=== PATIENT | female | born 1950 | race Caucasian/White ===

== ENCOUNTER 2017-04-29 12:07 | Inpatient (IN) ==
[2017-04-28 15:48] LABS: Basophils # (Auto) 0 K/mcL (0.0-0.3); Basophils % (Auto) 0.5 % (0.0-2.0); Eosinophils # (Auto) 0.3 K/mcL (0.0-0.7); Eosinophils % (Auto) 3.8 % (0.0-7.0); Granulocytes % (Auto) 62.1 % (38.0-78.0); Lymphocytes # (Auto) 1.8 K/mcL (1.5-4.8); Lymphocytes % (Auto) 25.6 % (15.5-49.0); Mean Cell Volume 90.4 fL (80.0-100.0); Mean Corpuscular HGB Conc 33.8 g/dL (31.0-36.0); Mean Corpuscular Hemoglobin 30.6 pg (26.0-34.0); Monocytes # (Auto) 0.6 K/mcL (0.1-0.9); Platelet Count 243 K/mcL (140-440); RBC 4.76 M/mcL (4.00-5.20); Red Cell Distribution Width 12.7 % (11.5-14.5)
[2017-04-28 16:02] LABS: Blood Urea Nitrogen 21 mg/dl (8-23)
[2017-04-28 16:12] LABS: Appearance,Urine CLEAR; Bilirubin,Urine NEG (NEG); Color,Urine YELLOW; Glucose,Urine (UA) NEGATIVE (NEG); Leukocyte Esterase,Urine NEG /uL (NEG); Nitrate,Urine NEG (NEG); Protein,Urine NEG (NEG); Specific Gravity,Urine 1.016 (1.000-1.035); Urine Blood NEG mg/dL (<0.03); Urobilinogen,Urine NEG (NEG)
[~2017-04-29 12:07] MED LIST: CELECOXIB 200 MG CAPSULE PO SCH; PREGABALIN 75 MG CAPSULE PO SCH; ceFAZolin 1 GM VIAL IV SCH; oxyCODONE 10 MG TAB.ER.12H PO SCH
[2017-04-29] MEDS ORDERED: METOPROLOL SUCCINATE 25 MG TAB.XL.24H PO STA (13:21)
[2017-04-29] MEDS ORDERED: SCOPOLAMINE 1 PATCH PATCH TOPICAL SCH (13:30)
[2017-04-29] MEDS ORDERED: KETOROLAC 30 MG, ROPIVACAINE HCL/PF 49.5 ML, EPINEPHrine 0.5 MG, 0.9 % SODIUM CHLORIDE ... IJ ONE (14:00)
[2017-04-29] MEDS ORDERED: LIDOCAINE HCL/PF 100 MG/5 ML SYRINGE IV ONE (16:20)
[2017-04-29] MEDS ORDERED: DEXAMETHASONE 10 MG/ML VIAL IV ONE (16:20)
[2017-04-29] MEDS ORDERED: PROPOFOL 200 MG/20 ML VIAL IV ONE (16:20)
[2017-04-29] MEDS ORDERED: ePHEDrine 50 MG/ML AMPUL IV ONE (16:20)
[2017-04-29] MEDS ORDERED: TRANEXAMIC ACID 1,000 MG/10 ML VIAL IV ONE (16:20)
[2017-04-29] MEDS ORDERED: ROPIVACAINE HCL/PF 20 ML VIAL IJ ONE (16:20)
[2017-04-29] MEDS ORDERED: ONDANSETRON 4 MG/2 ML VIAL IV ONE (16:20)
[2017-04-29] MEDS ORDERED: GENTAMICIN SULFATE 800 MG/20 ML VIAL IR ONE (16:53)
[2017-04-29] MEDS ORDERED: PROMETHAZINE 25 MG/ML VIAL IM PRN (17:20)
[2017-04-29] MEDS ORDERED: diphenhydrAMINE 50 MG/ML VIAL IV PRN (17:20)
[2017-04-29] MEDS ORDERED: LACTATED RINGERS 250 ML IV PRN (17:20)
[2017-04-29] MEDS ORDERED: PROMETHAZINE 25 MG/ML VIAL IV PRN (17:20)
[2017-04-29] MEDS ORDERED: BENZOCAINE/MENTHOL 1 LOZENGE PO PRN ×2 (17:20→17:55)
[2017-04-29] MEDS ORDERED: METHOCARBAMOL 1,000 MG/10 ML VIAL IV PRN (17:20)
[2017-04-29] MEDS ORDERED: HYDROmorphone 2 MG/ML SYRINGE IV PRN ×2 (17:20→17:55)
[2017-04-29] MEDS ORDERED: MEPERIDINE 25 MG/ML SYRINGE IV PRN (17:20)
[2017-04-29] MEDS ORDERED: MEPERIDINE 50 MG/ML SYRINGE IM PRN (17:20)
[2017-04-29] MEDS ORDERED: fentaNYL 100 MCG/2 ML VIAL IV PRN (17:20)
[2017-04-29] MEDS ORDERED: NALOXONE HCL 0.4 MG/ML VIAL IV PRN (17:20)
[2017-04-29] MEDS ORDERED: FLUMAZENIL 0.1 MG/ML ML IV PRN (17:20)
[2017-04-29] MEDS ORDERED: ePHEDrine 50 MG/ML AMPUL IV PRN (17:20)
[2017-04-29] MEDS ORDERED: IPRATROPIUM/ALBUTEROL 3 ML AMPUL.NEB NEB PRN (17:20)
[2017-04-29] MEDS ORDERED: ONDANSETRON 4 MG/2 ML VIAL IV PRN ×2 (17:20→17:55)
[2017-04-29] MEDS ORDERED: LACTATED RINGERS 1,000 ML IV SCH (17:30)
[2017-04-29] MEDS ORDERED: BISACODYL 10 MG SUPP.RECT PR PRN (17:55)
[2017-04-29] MEDS ORDERED: MAGNESIUM HYDROXIDE 30 ML ORAL.SUSP PO PRN (17:55)
[2017-04-29] MEDS ORDERED: TRANEXAMIC ACID 1,000 MG/10 ML VIAL IV SCH (17:55)
[2017-04-29] MEDS ORDERED: POLYETHYLENE GLYCOL 3350 17 GM PACKET PO PRN (17:55)
[2017-04-29] MEDS ORDERED: FLEETS ADULT ENEMA PR PRN (17:55)
[2017-04-29] MEDS ORDERED: HYDROcodone/APAP 10/325MG TABLET PO PRN (17:55)
--- NOTE | 2017-04-29 17:55 | Brief Operative Note ---
Date of procedure: 04/29/17 Pre-op diagnosis: left knee djd severe Post-op diagnosis: same Procedure: left tka with susana robot Grafts/Implants: Yes Anesthesia: GETA Complications: none Complications Description: 04/29/17 17:54 none Surgeon: Harsha Davila Beef Pluck Trimmer: Sly Pugh Estimated blood loss (cc): 50 Tourniquet Time (Minutes): 60 Specimens Removed/Pathology: none sent Condition: stable Disposition: PACU
--- NOTE | 2017-04-29 18:28 | XRay Report ---
CLINICAL INFORMATION: Reason for Exam:Post-Op Total Knee COMPARISON: None. FINDINGS: Total knee prostheses is anatomically aligned. No osseous abnormality. Soft tissues swelling seen as expected IMPRESSION: Negative Interpreted and Authenticated by: Tyson Medina 04/29/17
[2017-04-29] MEDS: 0.45 % SODIUM CHLORIDE 1,000 ML IV SCH (19:31)
[2017-04-29] MEDS: KETOROLAC 15 MG/ML VIAL IV SCH ×2 (19:31→23:55)
[2017-04-29] MEDS ORDERED: amLODIPine 5 MG TABLET PO SCH (21:00)
[2017-04-29] MEDS ORDERED: NAPROXEN (PP) 200MG TABLET (#24) PO SCH (21:00)
[2017-04-29] MEDS ORDERED: DOCUSATE SODIUM 100 MG CAPSULE PO SCH (21:00)
[2017-04-29] MEDS ORDERED: SENNOSIDES 1 TABLET PO SCH (21:00)
[2017-04-29] MEDS ORDERED: TEMAZEPAM 15 MG CAPSULE PO PRN (21:00)
[2017-04-29] MEDS ORDERED: ATORVASTATIN 20 MG TABLET PO SCH (21:00)
[2017-04-29] MEDS: ASPIRIN 325 MG ENTERIC COATED TABLET PO SCH (21:14)
[2017-04-29] MEDS: 0.9 % SODIUM CHLORIDE 10 ML SYRINGE IV SCH (21:15)
[2017-04-29] MEDS: ACETAMINOPHEN 325 MG TABLET PO PRN (21:23)
[2017-04-29] MEDS: ceFAZolin 1 GM VIAL IV SCH (23:56)
[2017-04-30] MEDS: ACETAMINOPHEN 325 MG TABLET PO PRN (03:15)
[2017-04-30] MEDS: 0.45 % SODIUM CHLORIDE 1,000 ML IV SCH ×2 (05:30→14:34)
[2017-04-30] MEDS: 0.9 % SODIUM CHLORIDE 10 ML SYRINGE IV SCH ×2 (05:30→14:34)
[2017-04-30] MEDS: KETOROLAC 15 MG/ML VIAL IV SCH ×3 (05:31→17:59)
--- NOTE | 2017-04-30 07:44 | Orthopedic Progress Note ---
Subjective Patient information: Note initiated : 04/30/17 at 7:43 am Service Date, if different from initiated Date: [] Patient: Susan Zuluaga 67 y/o F admitted on 04/29/17 for Left Total Knee Arthroplasty with Evan Assist. Chief Complaint: minimal pain and walking well] Objective Vital signs: Vital Signs Temp Pulse Resp BP Pulse Ox 04/30/17 07:31 93 04/30/17 06:56 97.8 F 22 112/72 93 04/30/17 03:28 92 04/30/17 03:20 98.0 F 81 14 105/65 92 04/30/17 01:03 96 04/29/17 23:08 96 04/29/17 23:07 97.8 F 92 H 16 142/80 96 04/29/17 21:55 97 04/29/17 20:00 93 H 148/77 97 04/29/17 19:30 91 H 137/80 93 04/29/17 19:14 97 04/29/17 19:00 94 H 147/79 99 04/29/17 18:45 95.6 F L 95 H 14 152/79 99 04/29/17 18:30 97.1 F 89 16 136/69 98 04/29/17 18:15 97.7 F 91 H 16 127/58 99 04/29/17 18:10 97.7 F 88 18 115/57 100 04/29/17 18:05 97.7 F 64 14 114/56 100 04/29/17 18:00 97.7 F 54 L 14 119/54 98 04/29/17 12:30 96.9 F L 78 18 144/82 95 04/29/17 12:20 18 95 Intake and Output 04/29/17 04/30/17 04/30/17 21:59 05:59 13:59 Intake Total 20998 / 1898 Output Total 1852 551 / 551 Balance 2098 45 / 45 -551 / -551 Intake: IV 998 / 998 Sodium Chloride 0.45% 1, 998 / 998 000 ml @ 100 mls/hr IV . Q10H JAMILAH Rx#:[id number] Oral 900 / 900 IV - Manual Only 2099 Output: Void Amount 1849 550 / 550 # of times incontinent of 1 / 1 3 / 3 1 / 1 urine Other: Weight 254 lb 6.4 oz Intake & Output: Intake & Output 04/29/17 04/30/17 04/30/17 21:59 05:59 13:59 Intake Total 2099 1898 / 1898 Output Total 1852 / 1852 551 / 551 Balance 2098 / 2098 45 / 45 -551 / -551 Weight 254 lb 6.4 oz Intake: IV 998 / 998 Sodium Chloride 0.45% 1, 998 / 998 000 ml @ 100 mls/hr IV . Q10H JAMILAH Rx#:[id number] Oral 900 / 900 IV - Manual Only 2099 Output: Void Amount 1849 550 / 550 # of times incontinent of urine Incision: Yes healing Incision clean and dry: Yes Dressing: Yes clean Weight bearing status: full Neurological exam IM: Yes oriented X3, Yes neurovascular intact Extremities exam IM: Yes Foot pink and warm, Yes neurovascular intact (d/c home later today) - Labs CBC & BMP: 04/30/17 04:35 04/28/17 14:27 Labs: Orthopedic Labs 04/28/17 14:27 PT 13.7 INR 1.0 APTT 04/30/17 04/28/17 04:35 14:27 Hgb 14.6 Hct 39.3 43.1
--- NOTE | 2017-04-30 07:47 | Discharge Summary ---
Ortho Discharge - TKA - Patient Instructions Diet: Regular Diet Activity: activity as tolerated, weight bearing as tolerated Total Knee Protocol: For Total Knee: Start ROM HERNAN with stationary bike or rocking chair. Work on gaining full extension of knee. Posterior dislocation precautions provided. Hip abductor strengthening and gait training instructions provided. Apply Cryocuff as instructed. Dressing Care: Aquacel Ag - leave on for 5 days - Follow Up Plan Disposition: Home, Self-Care Prognosis: Good Rehab Potential: Good I certify that the patient requires SNF services: No Overall status at discharge: patient is progressing back to baseline - Orders For Discharge Additional Discharge Orders: Physical Therapy at Discharge - TKA Location: Determined By Patient CPM Discharge Order Location: Determined By Patient Toilet Riser Discharge Order Location: Determined By Patient Walker Location: Determined By Patient
[2017-04-30] MEDS ORDERED: oxyCODONE/APAP 5/325MG TABLET PO PRN (07:53)
[2017-04-30] MEDS: ceFAZolin 1 GM VIAL IV SCH (08:50)
[2017-04-30] MEDS: ASPIRIN 325 MG ENTERIC COATED TABLET PO SCH (08:50)
[2017-04-30] MEDS ORDERED: VITAMIN D3 1,000 UNIT TABLET PO SCH (09:00)
[2017-04-30] MEDS ORDERED: HYDROCHLOROTHIAZIDE 25 MG TABLET PO SCH (09:00)
[2017-04-30] MEDS ORDERED: LOSARTAN 50 MG TABLET PO SCH (09:00)
[2017-04-30] MEDS ORDERED: FISH OIL 1,000 MG CAPSULE PO SCH (09:00)
[2017-04-30] MEDS ORDERED: METOPROLOL SUCCINATE 25 MG TAB.XL.24H PO SCH (09:00)
[2017-04-30] MEDS ORDERED: oxyCODONE 10 MG TAB.ER.12H PO SCH (09:00)
--- NOTE | 2017-06-15 08:17 | Operative Note ---
DATE OF OPERATION: 04/29/2017 PREOPERATIVE DIAGNOSIS: Severe left knee degenerative arthritis through all compartments. POSTOPERATIVE DIAGNOSIS: Severe left knee degenerative arthritis through all compartments. PROCEDURE: Left total knee arthroplasty with the JULIOCESAR robot. SURGEON: Harsha Davila MD. ARMATURE REWINDER: Sly Pugh PA-C. ANESTHESIA: General LMA anesthesia. ESTIMATED BLOOD LOSS: 50 mL. TOURNIQUET TIME: 60 minutes. IMPLANTS: [place] components with the JULIOCESAR robot. DESCRIPTION OF PROCEDURE: The patient was brought to the operating room and put to sleep with general LMA anesthesia. Once asleep, the patient had the left leg sterilely prepped and draped in the usual sterile fashion and confirmed as the operative site. Once this was done, Ioban was placed over the skin, preop antibiotics and tranexamic acid was confirmed as given. A time out confirmed the operative site as the left leg. Once all this had been done, we made a midline incision, inflated the tourniquet up to 250 pounds of pressure. A mid vastus approach was performed. Once this was done, we registered the hip center of rotation. Two pins above and below the knee were registered, 30 points on the femur, 30 points on the tibia, and we balanced the knee. Osteophytes were removed. Remnants of the meniscus and ACL were removed. Once this was done, we then brought the robot in and registered the femur and the robotic arm. We made our distal femoral cut and posterior chamfer cut. We then made our anterior and posterior cuts after changing the saw blade and the tibial cut. Once this was done, I then tapped into place a size 4 tibial baseplate, size 4 femur and trialed the components. It seemed that they balanced very well with a standard thickness poly. We then prepared the patella measuring 22 mm. This was cut to 13 mm and then placing a 33 mm patellar button. Once this was done, the components were cemented into place a size 4 femur, a size 4 tibial baseplate with a 9 mm poly and 33 mm cup patellar button. There were no complications. We irrigated thoroughly. Excess cement had been removed. We closed the mid vastus approach with Stratafix #1. We closed the skin with 2-0 Vicryl and adhesive closure. The patient tolerated this well without complication. ALISA:marissa Job ID: [id number] Doc ID: [id number] Harsha Davila MD
== END 2017-04-30 19:05 | disposition home or self-care (01) | DRG 470 ==
LOC: MEDSUR 12:07
PROVIDERS: ADMIT Orthopaedic Surgery; ATTEND Orthopaedic Surgery

== ENCOUNTER 2019-04-25 04:59 | Inpatient (IN) ==
[2019-04-19 18:57] LABS: Basophils # (Auto) 0 K/mcL (0.0-0.3); Basophils % (Auto) 0.6 % (0.0-2.0); Eosinophils # (Auto) 0.2 K/mcL (0.0-0.7); Eosinophils % (Auto) 3.4 % (0.0-7.0); Granulocytes % (Auto) 62.8 % (38.0-78.0); Hematocrit 43.9 % (36.0-48.0); Hemoglobin 14.2 g/dL (12.0-15.0); Lymphocytes # (Auto) 1.5 K/mcL (1.5-4.8); Lymphocytes % (Auto) 24.8 % (15.5-49.0); Mean Cell Volume 89.7 fL (80.0-100.0); Mean Corpuscular HGB Conc 32.4 g/dL (31.0-36.0); Mean Platelet Volume 9.8 fL (7.4-10.4); Monocytes # (Auto) 0.5 K/mcL (0.1-0.9); Monocytes % (Auto) 8.4 % (1.0-12.0); Platelet Count 216 K/mcL (140-440); RBC 4.89 M/mcL (4.00-5.20)
[2019-04-19 19:33] LABS: Blood Urea Nitrogen 18 mg/dl (8-23); Carbon Dioxide 25 mmol/L (22-30); Chloride 105 mmol/L (96-108); Glomerular Filtration Rate 42; Glucose 113 mg/dL (70-105); Sodium 143 mmol/L (133-145)
[2019-04-19 19:47] LABS: INR 1.1 (0.9-1.1); Prothrombin Time 13.8 sec (11.9-14.5)
[2019-04-20 17:48] LABS: Appearance,Urine HAZY; Bacteria,Urine MOD /hpf (0); Bilirubin,Urine NEG (NEG); Color,Urine YELLOW; Culture Indicated,Urine NO; Glucose,Urine (UA) NEGATIVE (NEG); Ketones,Urine NEG (NEG); Leukocyte Esterase,Urine 25 /uL (NEG); Mucus,Urine MANY /hpf (0); Nitrate,Urine NEG (NEG); Protein,Urine 30 mg/dL (NEG); Specific Gravity,Urine 1.029 (1.000-1.035); Urine Amorphous Crystals FEW /hpf (0); Urine Blood NEG mg/dL (<0.03); Urine RBC 3 /hpf (0-1); Urine Squamous Epithelial Cell 13 /hpf (0-4); Urine Transitional Epi Cells < 1 /hpf (0-2); Urine WBC 25 /hpf (0-4); Urobilinogen,Urine NEG (NEG)
[2019-04-25] MEDS ORDERED: IPRATROPIUM/ALBUTEROL 3 ML AMPUL.NEB NEB PRN ×2 (05:00→09:06)
[2019-04-25] MEDS ORDERED: CELECOXIB 200 MG CAPSULE PO SCH (06:00)
[2019-04-25] MEDS ORDERED: ceFAZolin 3 GM in DEXTROSE 5% IN WATER 50 ML IV SCH (06:00)
[2019-04-25] MEDS ORDERED: ACETAMINOPHEN 500 MG TABLET PO SCH (06:00)
[2019-04-25] MEDS ORDERED: SCOPOLAMINE 1 PATCH PATCH TOPICAL ONE (06:00)
[2019-04-25] MEDS ORDERED: 0.9 % SODIUM CHLORIDE 9 ML, KETOROLAC 30 MG, ROPIVACAINE HCL/PF 49.5 ML, EPINEPHrine 0.... IJ SCH (06:00)
[2019-04-25] MEDS ORDERED: PREGABALIN 75 MG CAPSULE PO SCH (06:00)
[2019-04-25] MEDS ORDERED: oxyCODONE 10 MG TAB.ER.12H PO SCH (06:00)
[2019-04-25 06:54] LABS: Appearance,Urine CLEAR; Bacteria,Urine 0 /hpf (0); Bilirubin,Urine NEG (NEG); Color,Urine STRAW; Culture Indicated,Urine NO; Glucose,Urine (UA) NEGATIVE (NEG); Ketones,Urine NEG (NEG); Leukocyte Esterase,Urine NEG /uL (NEG); Mucus,Urine FEW /hpf (0); Nitrate,Urine NEG (NEG); Protein,Urine NEG (NEG); Specific Gravity,Urine 1.015 (1.000-1.035); Urine Blood 0.03 mg/dL (<0.03); Urine RBC 1 /hpf (0-1); Urine Squamous Epithelial Cell 1 /hpf (0-4); Urine WBC 2 /hpf (0-4); Urobilinogen,Urine NEG (NEG)
[2019-04-25] MEDS ORDERED: GENTAMICIN SULFATE 800 MG/20 ML VIAL IR ONE (07:19)
[2019-04-25] MEDS ORDERED: KETAMINE 100 MG/ML ML IV ONE (07:45)
[2019-04-25] MEDS ORDERED: ROPIVACAINE HCL/PF 20 ML VIAL IJ ONE (07:45)
[2019-04-25] MEDS ORDERED: PROPOFOL 200 MG/20 ML VIAL IV ONE (07:45)
[2019-04-25] MEDS ORDERED: TRANEXAMIC ACID 1,000 MG/10 ML VIAL IV ONE (07:45)
[2019-04-25] MEDS ORDERED: MIDAZOLAM 2 MG/2 ML VIAL IV ONE (07:45)
[2019-04-25] MEDS ORDERED: ONDANSETRON 4 MG/2 ML VIAL IV ONE (07:45)
[2019-04-25] MEDS ORDERED: ePHEDrine 50 MG/ML AMPUL IV ONE (07:45)
[2019-04-25] MEDS ORDERED: DEXAMETHASONE 10 MG/ML VIAL IV ONE (07:45)
[2019-04-25] MEDS ORDERED: LIDOCAINE HCL/PF 100 MG/5 ML SYRINGE IV ONE (07:45)
[2019-04-25] MEDS ORDERED: NALOXONE HCL 0.4 MG/ML VIAL IV PRN (09:06)
[2019-04-25] MEDS ORDERED: FLUMAZENIL 0.1 MG/ML ML IV PRN (09:06)
[2019-04-25] MEDS ORDERED: ONDANSETRON 4 MG/2 ML VIAL IV PRN ×2 (09:06→09:26)
[2019-04-25] MEDS ORDERED: PROMETHAZINE 25 MG/ML VIAL IV PRN (09:06)
[2019-04-25] MEDS ORDERED: diphenhydrAMINE 50 MG/ML VIAL IV PRN (09:06)
[2019-04-25] MEDS ORDERED: LACTATED RINGERS 250 ML IV PRN (09:06)
[2019-04-25] MEDS ORDERED: BENZOCAINE/MENTHOL 1 LOZENGE PO PRN ×2 (09:06→09:26)
[2019-04-25] MEDS ORDERED: MEPERIDINE 25 MG/ML SYRINGE IV PRN (09:06)
[2019-04-25] MEDS ORDERED: fentaNYL 100 MCG/2 ML VIAL IV PRN (09:06)
[2019-04-25] MEDS ORDERED: LACTATED RINGERS 1,000 ML IV SCH (09:15)
--- NOTE | 2019-04-25 09:23 | Brief Operative Note ---
Date of procedure: 04/25/19 Pre-op diagnosis: right knee djd severe contracture Post-op diagnosis: same Procedure: Right tka with susana robot Grafts/Implants: Yes Anesthesia: ROBERTA Surgeon: Harsha Davila Cash Crop Farmer: Sly Pugh Estimated blood loss (cc): 30 Tourniquet Time (Minutes): 50 Specimens Removed/Pathology: none sent Condition: stable Disposition: PACU
[2019-04-25] MEDS ORDERED: BISACODYL 10 MG SUPP.RECT PR PRN (09:26)
[2019-04-25] MEDS ORDERED: TRANEXAMIC ACID 1,000 MG/10 ML VIAL IV SCH (09:26)
[2019-04-25] MEDS ORDERED: POLYETHYLENE GLYCOL 3350 17 GM PACKET PO PRN (09:26)
[2019-04-25] MEDS ORDERED: ACETAMINOPHEN 325 MG TABLET PO PRN (09:26)
[2019-04-25] MEDS ORDERED: HYDROmorphone 2 MG/ML VIAL IV PRN (09:26)
[2019-04-25] MEDS ORDERED: MAGNESIUM HYDROXIDE 30 ML ORAL.SUSP PO PRN (09:26)
[2019-04-25] MEDS ORDERED: FLEETS ADULT ENEMA PR PRN (09:26)
[2019-04-25] MEDS ORDERED: ACETAMINOPHEN 500 MG TABLET PO PRN (09:32)
--- NOTE | 2019-04-25 10:09 | XRay Report ---
CLINICAL INFORMATION: Postsurgical follow-up TECHNIQUE: AP and crosstable lateral right knee COMPARISON: None. FINDINGS: Status post right total knee arthroplasty. Femoral and tibial components are in thymic positions. There is postsurgical soft tissue and intra-articular gas. There are skin destiny anteriorly IMPRESSION: Status post right total knee arthroplasty. Interpreted and Authenticated by: Tyson Brandt 04/25/19
[2019-04-25] MEDS: 0.45 % SODIUM CHLORIDE 1,000 ML IV SCH ×2 (10:19→20:42)
[2019-04-25] MEDS: oxyCODONE/APAP 5/325MG TABLET PO PRN ×2 (12:27→20:36)
[2019-04-25] MEDS: 0.9 % SODIUM CHLORIDE 10 ML SYRINGE IV SCH ×2 (12:28→20:38)
[2019-04-25] MEDS: KETOROLAC 15 MG/ML VIAL IV SCH ×3 (12:28→23:33)
[2019-04-25] MEDS: ceFAZolin 1 GM VIAL IV SCH ×2 (15:50→23:33)
[2019-04-25] MEDS ORDERED: ATORVASTATIN 20 MG TABLET PO SCH (21:00)
[2019-04-25] MEDS ORDERED: SENNOSIDES 1 TABLET PO SCH (21:00)
[2019-04-25] MEDS ORDERED: amLODIPine 10 MG TABLET PO SCH (21:00)
[2019-04-25] MEDS ORDERED: TEMAZEPAM 15 MG CAPSULE PO PRN (21:00)
[2019-04-25] MEDS: DOCUSATE SODIUM 100 MG CAPSULE PO SCH (21:09)
[2019-04-25] MEDS: ASPIRIN 325 MG ENTERIC COATED TABLET PO SCH (21:09)
[2019-04-26] MEDS: KETOROLAC 15 MG/ML VIAL IV SCH ×2 (05:44→11:52)
[2019-04-26] MEDS: 0.45 % SODIUM CHLORIDE 1,000 ML IV SCH ×2 (05:45→13:43)
[2019-04-26] MEDS: 0.9 % SODIUM CHLORIDE 10 ML SYRINGE IV SCH ×2 (05:46→12:41)
--- NOTE | 2019-04-26 07:34 | Orthopedic Progress Note ---
Subjective Patient information: Note initiated : 04/26/19 at 7:33 am Service Date, if different from initiated Date: [] Patient: Susan Zuluaga 69 y/o F admitted on 04/25/19 for Right Robotic Total Knee Arthroplasty. Chief Complaint: [Pt is stable this morning on post operative day 1 without any significant concerns or complaints. Patients vital signs have remained stable. Patients dressing is dry and is grossly intact from a neurovascular and motor standpoint. Patients 10 point ROS is otherwise negative. ] Objective Vital signs: Vital Signs Temp Pulse Resp BP BP Pulse Ox 04/26/19 07:19 98.4 F 78 12 141/70 96 04/26/19 05:43 96 04/26/19 04:30 98.5 F 75 12 129/68 94 04/26/19 02:00 95 04/25/19 23:40 98.7 F 86 12 118/68 94 04/25/19 22:00 94 04/25/19 19:10 98.2 F 87 12 125/64 94 04/25/19 17:56 91 04/25/19 16:00 98.0 F 96 H 18 120/65 94 04/25/19 13:40 97.4 F 76 18 148/70 94 04/25/19 13:10 97.6 F 82 18 130/67 93 04/25/19 12:10 74 18 139/71 93 04/25/19 11:45 103 H 16 134/76 95 04/25/19 11:10 79 16 121/69 94 04/25/19 10:55 71 16 128/65 94 04/25/19 10:40 77 16 119/64 94 04/25/19 10:25 74 16 122/65 94 04/25/19 10:22 91 04/25/19 10:10 97.2 F 77 12 129/68 97 04/25/19 10:06 97.4 F 75 18 140/57 93 04/25/19 09:57 97.4 F 79 20 139/60 93 04/25/19 09:42 97.3 F 80 22 142/60 98 04/25/19 09:37 78 21 145/61 97 04/25/19 09:32 79 20 143/67 97 04/25/19 09:27 97.3 F 76 18 148/67 96 Intake and Output 0604/26/19 04/26/19 21:59 05:59 13:59 Intake Total 800 200 Output Total 450 1050 Balance 350 -850 Intake: Oral 800 200 Output: Void Amount 450 1050 Other: Urine Appearance Clear Clear Urine Color Pale Pale Urine Odor Normal Normal # Voids 1 Weight 268 lb Intake & Output: Intake & Output 04/25/19 04/26/19 04/26/19 21:59 05:59 13:59 Intake Total 800 200 Output Total 450 1050 Balance 350 -850 Weight 268 lb Intake: Oral 800 200 Output: Void Amount 450 1050 Other: Urine Appearance Clear Clear Urine Color Pale Pale Urine Odor Normal Normal # Voids 1 Incision: Yes healing Incision clean and dry: Yes Dressing: Yes clean Weight bearing status: full Neurological exam IM: Yes motor sensory intact, Yes neurovascular intact Extremities exam IM: Yes Foot pink and warm, Yes neurovascular intact - Labs CBC & BMP: 04/26/19 04:45 04/19/19 15:32 Labs: Orthopedic Labs 04/19/19 15:32 PT 13.8 INR 1.1 APTT 32 04/26/19 04/19/19 04:45 15:32 Hgb 14.2 Hct 38.1 43.9 Assessment and Plan (1) Hx of total knee arthroplasty The patient has been educated regarding dressing care, Physical Therapy recommendations, home exercises, restrictions, and follow up appointments. The patient has had all necessary DME prescribed. The patient has remained relatively stable during their hospital course. Status: Acute
--- NOTE | 2019-04-26 07:37 | Discharge Summary ---
Ortho Discharge - TKA - Patient Instructions Diet: Regular Diet Activity: activity as tolerated, weight bearing as tolerated Total Knee Protocol: For Total Knee: Start ROM HERNAN with stationary bike or rocking chair. Work on gaining full extension of knee. Posterior dislocation precautions provided. Hip abductor strengthening and gait training instructions provided. Apply Cryocuff as instructed. Dressing Care: May shower in 2 days, Aquacel Ag - leave on for 5 days - Problem Maintenance (1) Hx of total knee arthroplasty Status: Acute - Follow Up Plan Follow Up Appointments: Sly Pugh PA-C [Physician Furnace Helper] - 05/10/19 10:00 am Disposition: Home, Self-Care Prognosis: Good Rehab Potential: Good I certify that the patient requires SNF services: No Overall status at discharge: patient is progressing back to baseline - Orders For Discharge Prescriptions: Aspirin [Ecotrin] 325 mg PO BID #60 tab.ec Docusate Sodium [Colace] 100 mg PO BID #60 cap oxyCODONE/APAP [Percocet 5-325 mg] 1 - 2 tab PO Q4HP PRN #75 tab PRN Reason: Pain Level 3-6
--- NOTE | 2019-04-26 08:01 | Operative Note ---
DATE OF OPERATION: 04/25/2019 PREOPERATIVE DIAGNOSIS: Right knee degenerative arthritis, severe. POSTOPERATIVE DIAGNOSIS: Right knee degenerative arthritis, severe. PROCEDURE: Right robotic total knee arthroplasty. SURGEON: Harsha Davila MD SONOGRAPHY TECHNOLOGIST: Sly Pugh PA-C. The PA's assistance was required for the safe and efficient completion of the entire case. This provider's expertise and technical skill were required throughout the case. The PA assisted with preoperative coordination, intraoperative retraction, wound closure, dressing and splint application, as well as postoperative documentation and care coordination. ANESTHESIA: General LMA anesthesia. COMPLICATIONS: None. ESTIMATED BLOOD LOSS: About 50 mL IMPLANTS: Per nurse's note. Tranexamic acid and antibiotics were given prior to the case. Timeout was performed and we confirmed this as the operative site. DESCRIPTION OF PROCEDURE: Once the timeout had been performed, we confirmed as the operative site. We then exsanguinated the leg and inflated the right leg with the tourniquet to 250 pounds of pressure. Midline incision was made after the Ioban had been placed on the skin. We exposed the joint showing severe arthritis throughout all three compartments. Once done, we subluxed the patella laterally and performed a mid vastus approach, removing the remnants of the meniscus and spurs. We then placed two pins above and below the knee and registered the center of hip rotation, registered the medial and lateral malleoli, registered the femoral intraarticular pin. The tibial intraarticular pin and 30 points were registered on the femur and the tibia. Once done, we then adjusted the implants to match our findings of looseness of the ligaments and once this was perfectly calibrated for the patient's anatomy, we brought in the robot and made the bony cuts appropriately, keeping retractors in place to protect all soft tissue that was vulnerable. We removed the bony fragments and removed the remnants of the meniscus, removed spurs posteriorly and then placed the femoral and tibial components and trialed these to rebalance the knee. This seemed to balance very nicely as planned. We resurfaced the patella back to its anatomical thickness. All these components were cemented into place. The patient tolerated this well without complication. Once the cement was dried, we closed the mid vastus approach with #1 Stratafix x2 sutures on the capsule and the skin with #1 Stratafix and adhesive closure. The patient tolerated this well. There was no complication. Sterile bandage was applied. Tourniquet deflated at approximately 50 minutes. RBH:[email or web address] Job ID: [id number] Doc ID: [id number] Harsha Davila MD
[2019-04-26] MEDS: DOCUSATE SODIUM 100 MG CAPSULE PO SCH (08:25)
[2019-04-26] MEDS: ASPIRIN 325 MG ENTERIC COATED TABLET PO SCH (08:26)
[2019-04-26] MEDS ORDERED: METOPROLOL SUCCINATE 25 MG TAB.XL.24H PO SCH (09:00)
[2019-04-26] MEDS ORDERED: MAGNESIUM OXIDE 400 MG TABLET PO SCH (09:00)
[2019-04-26] MEDS ORDERED: NAPROXEN 220 MG PO SCH (09:00)
[2019-04-26] MEDS ORDERED: VITAMIN D3 1,000 UNIT TABLET PO SCH (09:00)
[2019-04-26] MEDS ORDERED: FISH OIL 1,000 MG CAPSULE PO SCH (09:00)
[2019-04-26] MEDS ORDERED: LOSARTAN 25 MG TABLET PO SCH (09:00)
[2019-04-26] MEDS ORDERED: CALCIUM (OYSTER SHELL) 500 MG TABLET PO SCH (09:00)
[2019-04-26] MEDS ORDERED: NON FORMULARY MEDICATION 1 DOSE MISCELL (Aspirin [Aspirin Ec] 81 MG) PO SCH (09:00)
[2019-04-26] MEDS ORDERED: NAPROXEN 250 MG TABLET PO ONE (10:47)
[2019-04-26] MEDS: oxyCODONE/APAP 5/325MG TABLET PO PRN (14:37)
== END 2019-04-26 14:45 | disposition home or self-care (01) | DRG 554 ==
LOC: MEDSUR 04:59
PROVIDERS: ADMIT Orthopaedic Surgery; ATTEND Orthopaedic Surgery